=== PATIENT | female | born 1995 | race Caucasian/White ===

== ENCOUNTER 2019-04-16 11:38 | Emergency (ER) | payer OTHER ==
[~2019-04-16] VITALS: Ht 160 cm; Wt 69.0 kg
[2019-04-16 11:42] VITALS: BP 145/77
--- NOTE | 2019-04-16 11:49 | NUR ---
TO [id number] PER W/C
[2019-04-16] MEDS ORDERED: KETOROLAC 30 MG/1 ML IM ONE (12:00)
[2019-04-16] MEDS ORDERED: KETOROLAC 30 MG/1 ML ONE (12:22)
[2019-04-16] MEDS ORDERED: HYDR50TA13 PO (12:26)
--- NOTE | 2019-04-16 12:33 | NUR ---
TORADOL GIVEN PER EMAR
--- NOTE | 2019-04-16 12:37 | NUR ---
TO RIDDLE BR PER W/C, ACCOMPANIED BY FRIEND.
== END 2019-04-16 14:00 | disposition home or self-care (01) ==
LOC: ED 12:18
DX: S92.214A Nondisplaced fracture of cuboid bone of right foot, initial encounter for closed fracture (principal); X58.XXXA Exposure to other specified factors, initial encounter; Y93.39 Activity, other involving climbing, rappelling and jumping off; Y92.830 Public park as the place of occurrence of the external cause; Y99.8 Other external cause status
CPT/HCPCS: 73610; 73630; 96372; 99283; J1885